=== PATIENT | female | born 1970 | race American Indian/Alaskan Native ===

== ENCOUNTER 2018-05-22 09:09 | Emergency (ER) | payer SELFPAY ==
[2018-05-22] MEDS ORDERED: DIFLUCAN PO ONE (10:38)
--- NOTE | 2018-05-22 10:38 | Emergency Department Report ---
ED Female HPI - General Chief complaint: Headache Stated complaint: HEADACHES/VAGINAL ITCHING Time Seen by Provider: 05/22/18 09:23 Source: patient Mode of arrival: Ambulatory Limitations: No Limitations - History of Present Illness Initial comments: This is a 48-year-old female presents to ED complaining of vaginal itching intermittently for the past month. Patient states about a month ago she used shaving eels product. Patient states that a couple days after that she started itching on her outer vaginal area. Patient states she then went and bought some [id number] cream which put on it which did not result this itching. Patient states she was also shaving and thinks that this made it worse. Patient denies any dysuria, vaginal discharge. She reports regular menstrual cycle which she currently is on today. Patient also has a history of migraines and states that she's been having migraine headache past day. - Related Data Previous Rx's Medication Instructions Recorded Last Taken Type Butalb/Acetaminophen/Caffeine 1 cap PO Q8HR PRN #30 cap 05/22/18 Unknown Rx [Fioricet 50-300-40 mg CAP] Fluconazole [Diflucan TAB] 150 mg PO DAILY #2 tablet 05/22/18 Unknown Rx Pramoxine HCl [Vagisil] 1 each TP TID #1 pack 05/22/18 Unknown Rx Terconazole [Terazol 7] 1 applic VG DAILY #1 cream.appl 05/22/18 Unknown Rx Allergies Allergy/AdvReac Type Severity Reaction Status Date / Time Penicillins Allergy Hives Verified 05/22/18 09:17 ED Review of Systems ROS: Stated complaint: HEADACHES/VAGINAL ITCHING Other details as noted in HPI Comment: All other systems reviewed and negative ED Past Medical Hx - Past Medical History Previous Medical History?: No - Surgical History Additional Surgical History: C SECTION - Social History Smoking Status: Never Smoker Substance Use Type: None - Medications Home Medications: Home Medications Medication Instructions Recorded Confirmed Last Taken Type Butalb/Acetaminophen/Caffeine 1 cap PO Q8HR PRN #30 cap 05/22/18 Unknown Rx [Fioricet 50-300-40 mg CAP] Fluconazole [Diflucan TAB] 150 mg PO DAILY #2 tablet 05/22/18 Unknown Rx Pramoxine HCl [Vagisil] 1 each TP TID #1 pack 05/22/18 Unknown Rx Terconazole [Terazol 7] 1 applic VG DAILY #1 cream.appl 05/22/18 Unknown Rx ED Physical Exam - General Limitations: No Limitations General appearance: alert, in no apparent distress - Head Head exam: Present: atraumatic, normocephalic - Eye Eye exam: Present: normal appearance - ENT ENT exam: Present: mucous membranes moist - Neck Neck exam: Present: normal inspection - Respiratory Respiratory exam: Present: normal lung sounds bilaterally. Absent: respiratory distress - Cardiovascular Cardiovascular Exam: Present: regular rate, normal rhythm. Absent: systolic murmur, diastolic murmur, rubs, gallop - GI/Abdominal GI/Abdominal exam: Present: soft, normal bowel sounds - External exam: Present: erythema, swelling, other (hyper pigmented vulva, erythematous irritated from itching) - Extremities Exam Extremities exam: Present: normal inspection - Back Exam Back exam: Present: normal inspection - Neurological Exam Neurological exam: Present: alert, oriented X3 - Psychiatric Psychiatric exam: Present: normal affect, normal mood - Skin Skin exam: Present: warm, dry, intact, normal color. Absent: rash ED Course Vital Signs 05/22/18 09:17 Temperature 98 F Pulse Rate 82 Respiratory 18 Rate Blood Pressure 148/88 O2 Sat by Pulse 100 Oximetry ED Medical Decision Making - Medical Decision Making 48-year-old female presents with vaginitis. Vital signs are normal. Patient is distressed Discussed the patient will follow-up with care physician Patient will be treated for with the regimen of flagyl and Diflucan. Critical care attestation.: If time is entered above; I have spent that time in minutes in the direct care of this critically ill patient, excluding procedure time. ED Disposition Clinical Impression: Vaginitis Disposition: DC-01 TO HOME OR SELFCARE Is pt being admited?: No Does the pt Need Aspirin: No Condition: Stable Instructions: Migraine Headache (ED), Vaginitis (ED) Additional Instructions: Make sure to follow up with the primary care physician as discussed. Take all your medications as you've been prescribed. If you have any worsening symptoms or develop new symptoms please return to ED immediately. Prescriptions: Butalb/Acetaminophen/Caffeine [Fioricet 50-300-40 mg CAP] 1 cap PO Q8HR PRN #30 cap PRN Reason: Headache Fluconazole [Diflucan TAB] 150 mg PO DAILY #2 tablet Pramoxine HCl [Vagisil] 1 each TP TID #1 pack Terconazole [Terazol 7] 1 applic VG DAILY #1 cream.appl Referrals: ADRIANA JUAN MD [Primary Care Provider] - 3-5 Days Forms: Work/School Release Form(ED) Time of Disposition: 10:42
[2018-05-22 11:37] VITALS: BP 147/96
== END 2018-05-22 11:38 | disposition home or self-care (01) ==
LOC: ED 09:09
DX: N76.0 Acute vaginitis (principal); Z88.0 Allergy status to penicillin
CPT/HCPCS: 99282